=== PATIENT | male | born 1945 | race African-American/Black ===

== ENCOUNTER 2019-05-29 08:05 | Day surgery (SDC) | payer OTHER, BC ==
[2019-05-29] MEDS ORDERED: NA CHLORIDE 0.9% 1,000 ML ONE (09:59)
[2019-05-29] MEDS ORDERED: LIDOCAINE 1% MPF 5 ML VIAL ONE (11:26)
[2019-05-29] MEDS ORDERED: PROPOFOL 200 MG/20 ML VIAL IV ONE (11:26)
--- NOTE | 2019-05-29 11:46 | ENDO RPT ---
[address], [address] EGD PROCEDURE REPORT EXAM DATE: 05/29/2019 PATIENT NAME: Shankar López MR#: [id number] BIRTHDATE: 1945 ATTENDING: Jamaal Arana Dr STATUS: outpatient POULTRY CUTTER: Billy Phillips RN and Florence Neff RN INDICATIONS: The patient is a 74 yr old Male here for an EGD due to iron deficiency anemia PROCEDURE PERFORMED: EGD with biopsy MEDICATIONS: Per Anesthesia. TOPICAL ANESTHETIC: none CONSENT: The patient understands the risks and benefits of the procedure and understands that these risks include, but are not limited to: sedation, allergic reaction, infection, perforation and/or bleeding. Alternative means of evaluation and treatment include, among others: physical exam, x-rays, and/or surgical intervention. The patient elects to proceed with this endoscopic procedure. DESCRIPTION OF PROCEDURE: During intra-op preparation period all mechanical medical equipment was checked for proper function. Hand hygiene and appropriate measures for infection prevention was taken. Procedure, possible complications, and alternatives including but not limited to the possibility of bleeding, perforation, tear, infection, sepsis, need for surgery, need for blood transfusion, and anesthesia related complications were explained to the patient. After the risks, benefits and alternatives of the procedure were thoroughly explained, Informed consent was verified, confirmed and timeout was successfully executed by the treatment team. The patient was placed in the left lateral position. The patient was anesthetized with topical anesthesia. Through the anesthetized oropharyngeal area, the scope was passed without any difficulty. The EC-3890Li ([id number]) and EG-2990i ([id number]) endoscope was introduced through the mouth and advanced to the third portion of the duodenum. Retroflexed views revealed a small hiatal hernia. The gastroscope was then slowly withdrawn and removed. A small hiatal hernia was found Mild gastritis was found in the antrum. Multiple biopsies were obtained and sent to pathology. An erosion was found in the antrum. Small bowel biopsies obtained with history of iron deficiency anem ia. ADVERSE EVENTS: There were no complications. IMPRESSIONS: 1. Small hiatal hernia 2. Mild gastritis in the antrum, s/p biopsies 3. Erosion in the antrum 4. Small bowel biopsies obtained with history of iron deficiency anem ia RECOMMENDATIONS: 1. await biopsy results 2. acid suppression therapy REPEAT EXAM: Jamaal Arana Dr eSigned: Jamaal Arana Dr 05/29/2019 11:46 AM cc: Gus Gómez CPT CODES: ICD9 CODES: PATIENT NAME: Shankar López MR#: [id number]
--- NOTE | 2019-05-29 12:13 | ENDO RPT ---
[address], [address] COLONOSCOPY PROCEDURE REPORT EXAM DATE: 05/29/2019 PATIENT NAME: Shankar López MR #: [id number] BIRTHDATE: 1945 ATTENDING: Jamaal Arana Dr STATUS: outpatient MGMT ANALYST: Billy Phillips RN and Florence Neff RN INDICATIONS: The patient is a 74 yr old Male here for a colonoscopy due to personal history of colon polyps and anemia PROCEDURE PERFORMED: Colonoscopy MEDICATIONS: Per Anesthesia. ESTIMATED BLOOD LOSS: None CONSENT: The patient understands the risks and benefits of the procedure and understands that these risks include, but are not limited to: sedation, allergic reaction, infection, perforation and/or bleeding. Alternative means of evaluation and treatment include, among others: physical exam, x-rays, and/or surgical intervention. The patient elects to proceed with this endoscopic procedure. DESCRIPTION OF PROCEDURE: During intra-op preparation period all mechanical medical equipment was checked for proper function. Hand hygiene and appropriate measures for infection prevention was taken. Procedure, possible complications, alternatives including, but not limited to possibility of bleeding, perforation, tear, infection, sepsis, need for surgery, need for blood transfusion, were explained to the patient. After the risks, benefits and alternatives of the procedure were thoroughly explained, Informed consent was verified, confirmed and timeout was successfully executed by the treatment team. The patient was placed in the left lateral position. A digital rectal exam was performed and revealed no abnormalities of the rectum. After appropriate level of anesthesia, the scope was passed. The EG-2990i ([id number]) and EC-3890Li ([id number]) endoscope was introduced through the anus and advanced to the terminal ileum which was intubated for a short distance. The quality of the prep was good. The instrument was then slowly withdrawn as the colon was fully examined. Scope withdrawal time was 7 minutes. COLON FINDINGS: Mild diverticulosis was noted throughout the entire examined colon. Moderate sized internal hemorrhoids were found. Retroflexed views revealed medium hemorrhoids. The scope was then completely withdrawn from the patient and the procedure terminated. ADVERSE EVENTS: There were no complications. IMPRESSIONS: 1. Mild diverticulosis throughout the entire examined colon 2. Moderate sized internal hemorrhoids 3. Intubation to terminal ileum RECOMMENDATIONS: 1. fiber rich diet 2. Small Bowel Follow Through if iron deficiency anemia confirmed 3. pillcam / capsule endoscopy if iron deficiency anemia confirmed RECALL: None scheduled due to age 74 [address] eSigned: Jamaal Arana Dr 05/29/2019 12:12 PM cc: Gus Gómez CPT CODES: ICD9 CODES: PATIENT NAME: Shankar López MR#: [id number]
--- NOTE | 2019-05-29 12:18 | ENDO RPT ---
[address], [address] COLONOSCOPY PROCEDURE REPORT EXAM DATE: 05/29/2019 PATIENT NAME: Shankar López MR #: [id number] BIRTHDATE: 1945 ATTENDING: Jamaal Arana Dr STATUS: outpatient SUPERVISORY AIDE: Billy Phillips RN and Florence Neff RN INDICATIONS: The patient is a 74 yr old Male here for a colonoscopy due to personal history of colon polyps and anemia PROCEDURE PERFORMED: Colonoscopy MEDICATIONS: Per Anesthesia. ESTIMATED BLOOD LOSS: None CONSENT: The patient understands the risks and benefits of the procedure and understands that these risks include, but are not limited to: sedation, allergic reaction, infection, perforation and/or bleeding. Alternative means of evaluation and treatment include, among others: physical exam, x-rays, and/or surgical intervention. The patient elects to proceed with this endoscopic procedure. DESCRIPTION OF PROCEDURE: During intra-op preparation period all mechanical medical equipment was checked for proper function. Hand hygiene and appropriate measures for infection prevention was taken. Procedure, possible complications, alternatives including, but not limited to possibility of bleeding, perforation, tear, infection, sepsis, need for surgery, need for blood transfusion, were explained to the patient. After the risks, benefits and alternatives of the procedure were thoroughly explained, Informed consent was verified, confirmed and timeout was successfully executed by the treatment team. The patient was placed in the left lateral position. A digital rectal exam was performed and revealed no abnormalities of the rectum. After appropriate level of anesthesia, the scope was passed. The EG-2990i ([id number]) and EC-3890Li ([id number]) endoscope was introduced through the anus and advanced to the terminal ileum which was intubated for a short distance. The quality of the prep was good. The instrument was then slowly withdrawn as the colon was fully examined. Scope withdrawal time was 7 minutes. COLON FINDINGS: Mild diverticulosis was noted throughout the entire examined colon. Moderate sized internal hemorrhoids were found. Retroflexed views revealed medium hemorrhoids. The scope was then completely withdrawn from the patient and the procedure terminated. ADVERSE EVENTS: There were no complications. IMPRESSIONS: 1. Mild diverticulosis throughout the entire examined colon 2. Moderate sized internal hemorrhoids 3. Intubation to terminal ileum 4. Personal history of colon polyps RECOMMENDATIONS: 1. fiber rich diet 2. Small Bowel Follow Through if iron deficiency anemia confirmed 3. pillcam / capsule endoscopy if iron deficiency anemia confirmed RECALL: Colonoscopy in [address] eSigned: Jamaal Arana Dr 05/29/2019 12:17 PM Revised: 05/29/2019 12:17 PM cc: Gus Gómez CPT CODES: ICD9 CODES: PATIENT NAME: Shankar López MR#: [id number]
[2019-05-29 12:23] VITALS: TEMP 97.3; O2SAT 95
[2019-05-29 13:50] VITALS: BP 118/65
== END 2019-05-29 12:45 | disposition home or self-care (01) ==
LOC: OR 08:05
PROVIDERS: ATTEND Internal Medicine Gastroenterology
PROC: 0DB88ZX Excision of Small Intestine, Via Natural or Artificial Opening Endoscopic, Diagnostic (ICD-10-PCS; 2019-05-29)
PROC: 0DJD8ZZ Inspection of Lower Intestinal Tract, Via Natural or Artificial Opening Endoscopic (ICD-10-PCS; principal; 2019-05-29 11:45)
PROC: 0DB68ZX Excision of Stomach, Via Natural or Artificial Opening Endoscopic, Diagnostic (ICD-10-PCS; 2019-05-29 11:45)
DX: K29.50 Unspecified chronic gastritis without bleeding (principal); K25.9 Gastric ulcer, unspecified as acute or chronic, without hemorrhage or perforation; K57.90 Diverticulosis of intestine, part unspecified, without perforation or abscess without bleeding; D50.9 Iron deficiency anemia, unspecified; K44.9 Diaphragmatic hernia without obstruction or gangrene; K64.8 Other hemorrhoids; E11.9 Type 2 diabetes mellitus without complications; I11.0 Hypertensive heart disease with heart failure; I50.9 Heart failure, unspecified; E78.5 Hyperlipidemia, unspecified; Z86.010 Personal history of colon polyps; Z95.810 Presence of automatic (implantable) cardiac defibrillator
CPT/HCPCS: 88312; 82947; 88305; 45378; 43239; J2704; J7030

== ENCOUNTER 2020-09-19 08:43 | Day surgery (SDC) | payer BC, OTHER ==
[2020-09-16 09:16] LABS: Absolute Lymphocytes (CBC) 1.2 K/uL (0.7-4.9); Basophils % 0.7 % (0-1.3); Hematocrit 39.2 % (39.6-49.0); MPV 11.1 fL (7.6-11.3); RBC Red Blood Cell Count 4.72 M/uL (4.33-5.43)
[2020-09-16 09:24] LABS: Potassium 3.8 mmol/L (3.5-5.1)
--- NOTE | 2020-09-16 09:46 | RAD REPORT ---
EXAM DESCRIPTION: Kenrick Pandey (2 Views)09/16/2020 9:33 am CLINICAL HISTORY: Preop for hernia repair COMPARISON: 2017 FINDINGS: The lungs appear clear of acute infiltrate. The heart is mildly enlarged. Pacemaker leads are in place. IMPRESSION: No acute abnormalities displayed
--- NOTE | 2020-09-17 22:29 | EKG ---
Test Date: 2020-09-16 Test Time: 08:50:23 Hot Stick Worker: CHRIS MEASUREMENT RESULTS: Intervals: Rate: 70 DC: 100 QRSD: 156 QT: 454 QTc: 490 [place]: P: 85 DC: 100 QRS: 250 T: 95 INTERPRETIVE STATEMENTS: Electronic ventricular pacemaker Compared to ECG 12/07/2016 06:16:13 Sinus tachycardia no longer present Left bundle-branch block no longer present Electronically Signed On 09-17-20 22:25:49 PUBLIC TRANSPORTATION INSPECTOR by Cody Beal
[2020-09-19] MEDS ORDERED: NA CHLORIDE 0.9% 1,000 ML ONE (09:03)
[2020-09-19] MEDS ORDERED: CEFAZOLIN/SWI 1gm 1 GM/10 ML SYR ONE (09:04)
[2020-09-19] MEDS ORDERED: FENTANYL CITR 100 MCG/2 ML ONE (09:45)
[2020-09-19] MEDS ORDERED: propofoL 200 MG/20 ML VIAL IV ONE (09:45)
[2020-09-19] MEDS ORDERED: LIDOCAINE 1% MPF 5 ML VIAL ONE (09:45)
[2020-09-19] MEDS ORDERED: BUPIVACAINE 0.5% PF 10 ML VIAL ONE (10:13)
[2020-09-19] MEDS ORDERED: KETOROLAC 30 MG/ML INJ ONE (10:18)
[2020-09-19] MEDS ORDERED: ONDANSETRON 4 MG/2 ML VIAL ONE (10:18)
[2020-09-19 10:29] VITALS: O2SAT 100
--- NOTE | 2020-09-19 11:13 | OP ---
Date of Procedure: 09/19/2020 Surgeon: Adryan Person MD [place]: None. Preoperative Diagnosis: Perianal mass. Postoperative Diagnosis: Perianal mass. Procedures: Exam under anesthesia, rigid proctoscopy, and excision of perianal mass. Estimated Blood Loss: Minimal. Specimen: Perianal mass. Finding: As above with posterior midline perianal mass approximately 1 cm hard nodule and then there was a little tear in the mucosa and the distal anal canal distal to the dentate line. Not sure whet her it is a fissure or related to this perianal mass. Finding: As above. Anesthesia: General. Complications: None. Disposition: The patient tolerated the procedure in stable condition and taken to Recovery in good g eneral condition. Description Of Procedure: The patient was brought to the OR and placed in supine position. General anesthesia begun. The patient was prepped and draped in the usual sterile fashion in the lithotomy p osition. Exam under anesthesia revealed 1 cm mass in the posterior midline and rigid proctoscopy rev ealed a mucosal tear in the posterior midline next to this mass, approximately 1 x 1 cm. Minimal ooz ing was noted probably secondary to the proctoscopy. This was controlled with cautery and the mass w as excised with cautery, bleeding controlled with cautery and Marcaine 0.5% was infiltrated locally f or postop pain control. There was no other evidence of disease noted anywhere else in the anal canal . Subsequently, sterile dressing was applied. The patient was awakened and taken to Recovery in goo d general condition. Discharge Note: The patient will go to Day Surgery and home when stable. Disposition: Home. Condition: Stable. Discharge Instructions: Resume home medications and diet. Activity: As tolerated. Discharge Instructions: No heavy lifting. Remove outer dressing in a.m. Sitz baths q.i.d. High-fi anton diet. Metamucil 1 tablespoon p.o. t.i.d. with water. Colace 100 mg p.o. b.i.d., Procto-HC 2.5% to anus b.i.d. and p.r.n. Tylenol No. 3 1 tablet p.o. q.4 p.r.n. pain. Follow up in my office in 2 weeks, call for appointment. /MODL Voice ID: [id number] Report ID: [id number]
[2020-09-19 11:59] VITALS: BP 138/66; TEMP 96.8
== END 2020-09-19 11:40 | disposition home or self-care (01) ==
LOC: OR 08:43
PROVIDERS: ATTEND Surgery
PROC: 0D5P8ZZ Destruction of Rectum, Via Natural or Artificial Opening Endoscopic (ICD-10-PCS; principal; 2020-09-19 10:15)
DX: K62.0 Anal polyp (principal); Z20.822 Contact with and (suspected) exposure to COVID-19
CPT/HCPCS: 93005; 85025; 80048; 36415; 82947 ×2; 88304; 71046; 45320; U0003; J2704; J3010; J0690; J7030; J2405; 88305

== ENCOUNTER 2022-08-02 08:27 | Emergency (ER) | payer OTHER ==
--- OUTSIDE RECORDS SUMMARY | 2022-08-02 08:30 | XMS REPORT | Continuity of Care Document ---
:1945 Author Organization [facility] t Address [address] [place] [address] Care Team Providers Name Role Phone Dalia RAM, Gus Awan Primary Care Physician Evelyn RAM, Buddy Banerjee Attending Clinician Marco Antonio RAM PhD, Santosh Chandler Attending Clinician JAY BENDER Attending Clinician Unavailable Payers Payer Name Policy Type Policy Number Effective Date Expiration Date S ource Problems Condition Condition Condition Status Onset Resolution Last Treating Co mments Source Name Details Category Date Date Treatment Clinician Date S/p S/p Disease Active Overview: Method i biventricu biventricu 03-[address] lar ICD lar ICD 00:00: g of this Hospi ta implant implant 00 note l (SHAKEELM, (SJM, might be 03/11/2017 03/11/[address] by from the Neelam Bernard) original. 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 Added automatic ally from request for surgery [id number] t Assessmen t & Plan: Formattin g of this note might be different from the original. 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 Added automatic ally from request for surgery [id number] CKD CKD Disease Active [facility] (chronic (chronic 02-23 st kidney kidney 00:00: Hospita disease) disease) 00 l Cardiomyop Cardiomyop Disease Active M ethodi athy athy 12-21 st 00:00: Hospita 00 l SOB SOB Disease Active [facility] (shortness (shortness 12-21 st of breath) of breath) 00:00: Ho spita 00 l CAD CAD Disease Active [facility] (coronary (coronary 12-07 st artery artery 00:00: Hospita disease) disease) 00 l Allergies, Adverse Reactions, Alerts This patient has no known allergies or adverse reactions. Family History Family Member Diagnosis Comments Start Date Stop Date Source Natural brother Heart disease [facility] Natural brother Hypertension [facility] Natural father Heart attack [facility] Natural father Heart failure [facility] mother Heart attack [facility] mother Heart failure [facility] sister Christianity [facility] Social History Social Habit Start Date Stop Date Quantity Comments Source Alcohol intake 2019-02-27 2019-02-27 Current [facility] 00:00:00 00:00:00 non-drinker of Hospital alcohol (finding) Tobacco use and 2016-12-21 2016-12-21 Smokeless tobacco [facility] exposure 00:00:00 00:00:00 non-user Hospital Sex Assigned At [birth year] [facility] 00:00:[facility] 00:00:00 Hospital Smoking Status Start Date Stop Date Source Never smoked tobacco [facility] Medications Ordered Filled Start Stop Current Ordering Indication Dosage Frequency Signature Comments Components Source Medication Medication Date Date Medication? Clinician (SIG) Name Name losartan 2021-07 Yes TAKE 1 [facility] (COZAAR) 50 1-[address] MG tablet 00:00: MOUTH Hospita 00 EVERY DAY l losartan 2021- No TAKE 1 Method i (COZAAR) 50 8-22 11-[address] MG tablet 00:00: 00:00 MOUTH Hospit a 00 :00 EVERY DAY l metFORMIN 2021-0 Yes 500mg Q.5D Take 500 Met hodi (GLUCOPHAGE 8-[address] ) 500 mg 12:51: mouth 2 Hospit a tablet 49 (two) l times a day with meals. aspirin 2021-0 Yes 81mg QD Take 81 mg Meth julissa (ECOTRIN) 8-[address] 81 MG 12:51: daily. Hospita enteric 49 l coated tablet psyllium 0 Yes Q.5D Take by Method i husk 8-[address] (METAMUCIL 12:51: (two) Hospit a ORAL) 49 times a l day. losartan 2021- No TAKE 1 Method i (COZAAR) 50 5-26 08-[address] MG tablet 00:00: 00:00 MOUTH Hospit a 00 :00 EVERY DAY l furosemide 2021-0 Yes TAKE 1 Metho di (LASIX) 40 3-[address] mg tablet 00:00: MOUTH Hospita 00 TWICE A l DAY metoprolol 0 Yes TAKE 1 Metho di succinate 3-[address] XL 00:00: MOUTH Hospita (TOPROL-XL) 00 EVERY DAY l 25 mg 24 hr tablet losartan 2021-0 2021- No TAKE 1 Method i (COZAAR) 50 2-28 05-[address] MG tablet 00:00: 00:00 MOUTH Hospit a 00 :00 EVERY DAY l Jardiance 2021-0 Yes TAKE 1 Method i 10 mg 1-[address] tablet 00:00: MOUTH Hospita tablet 00 DAILY IN l MORNING WITH BREAKFAST losartan 2020-07- No TAKE 1 Method i (COZAAR) 50 2-07 02-[address] MG tablet 00:00: 00:00 MOUTH Hospit a 00 :00 EVERY DAY l furosemide 2020-0 2021- No 40mg Q.5D Take 1 Meth julissa (LASIX) 40 3-15 03-02 tablet (40 st mg tablet 00:00: 00:00 mg total) Ho spita 00 :00 by mouth 2 l (two) times a day. metoprolol 2020-0 2021- No 25mg QD Take 1 Meth julissa succinate 3-15 03-02 tablet (25 st XL 00:00: 00:00 mg total) Hospita (TOPROL-XL) 00 :00 by mouth l 25 mg 24 hr daily. tablet JANUVIA 100 Yes TAKE 1 Meth julissa mg tablet 7-[address] 00:00: MOUTH Hospita 00 EVERY DAY l WITH BREAKFAST rosuvastati 2016-07 Yes TAKE 1 Meth julissa n (CRESTOR) 2-[address] 10 MG 00:00: MOUTH Hospita tablet 00 EVERY DAY l AFTER EVENING MEAL Immunizations Ordered Immunization Filled Immunization Date Status Commen ts Source Name Name PFIZER COVID-19 MRNA 2020-09-14 Completed [facility] VACCINATION 00:00:00 [facility] PFIZER COVID-19 MRNA 2020-08-24 Completed [facility] VACCINATION 00:00:00 [facility] Pneumococcal 2020-04-30 Completed [facility] Conjugate 13-Valent 00:00:00 Hospi chato Vital Signs Vital Name Observation Time Observation Value Comments Source Systolic blood 2022-03-02 17:50:00 145 mm[Hg] [facility] pressure Diastolic blood 2022-03-02 17:50:00 67 mm[Hg] [facility] pressure Heart rate 2022-03-02 17:50:00 77 /min [facility] Body height 2022-03-02 17:50:00 182.9 cm [facility] Body weight 2022-03-02 17:50:00 87.544 kg [facility] BMI 2022-03-02 17:50:00 26.18 kg/m2 [facility] Procedures Procedure Date / Time Performing Clinician Source Performed ECG 12-LEAD 2021-10-20 19:51:15 Santosh Bernard Ho spital CV PACEMAKER DEFIB ILR 2021-10-20 00:00:00 Santosh Bernard [facility] INTERROGATION Plan of Care Planned Activity Planned Date Details Comments Source Future Scheduled 2022-07-[address] [facility] Test 10:22:12 (procedure) [code = 619463416] Future Scheduled 2022-07-[address] [facility] Test 10:22:12 [code = COLONOSCOPY SCREENING] Future Scheduled 2022-07-14 SHINGLES VACCINES (1 Met [facility] Test 10:22:12 of 2) [code = SHINGLES VACCINES (1 of 2)] Future Scheduled 2022-07-14 COVID-19 VACCINE (3 - [facility] Test 10:22:12 Booster for Pfizer series) [code = COVID-19 VACCINE (3 - Booster for Pfizer series)] Future Scheduled 2022-07-14 65+ PNEUMOCOCCAL [facility] Test 10:22:12 VACCINE (2 - PPSV23 if available, else PCV20) [code = 65+ PNEUMOCOCCAL VACCINE (2 - PPSV23 if available, else PCV20)] Future Scheduled 2022-07-14 INFLUENZA VACCINE [facility] Test 10:22:12 [code = INFLUENZA VACCINE] Encounters Start End Encounter Admission Attending Care Care Encounter Source Date/Time Date/Time Type Type Clinicians Facility Department ID 2022-06-04 2022-06-04 Reflela Rivas, 1.2.840.1 [id number] [facility] 00:00:00 00:00:00 Buddy Banerjee [address]95.1.[address] 3.430.2.7 Hospit a .3.180152 l .8 2022-03-07 2022-03-07 Refill Evelyn, 1.2.840.1 [id number] [facility] 00:00:00 00:00:00 Buddy Banerjee [address].1.[address] 3.430.2.7 Hospit a .3.549523 l .8 2022-03-02 2022-03-02 Office Evelyn 1.2.840.1 [id number] [facility] 13:00:00 14:49:21 Visit Buddy Banerjee 74225.1.[address] 3.430.2.7 Hospit a .3.539342 l .8 2022-03-02 2022-03-02 Outpatient EVELYN, [facility] [id number] Zap 00:00:00 00:00:[address] 2022-03-02 2022-03-02 Travel 1.2.840.1 1.2.917.399 [id number] [facility] 00:00:00 00:00:[address] 3.430.2.7 0.2.7.3.698 Ho spita .3.855636 084.8 l .8 2021-12-10 2021-12-10 Refill Evelyn, 1.2.840.1 [id number] [facility] 00:00:00 00:00:[address] 3.430.2.7 Hospit a .3.265370 l .8 2021-10-21 2021-10-21 Orders Marco Antonio Santosh 1.2.840.1 [id number] [facility] 00:00:00 00:00:[address] 3.430.2.7 Hospit a .3.181644 l .8 2021-10-20 2021-10-20 Office Marco Antonio Santosh 1.2.840.1 [id number] [facility] 15:00:00 16:19:[address]058.1.[address] 3.430.2.7 Hospit a .3.389362 l .8 2021-10-20 2021-10-20 Outpatient ROCHELLE BERNARDSH [facility] [id number] Zap 00:00:00 00:00:[address] 2021-10-20 2021-10-20 Travel 1.2.840.1 1.2.915.692 [id number] [facility] 00:00:00 00:00:[address] 3.430.2.7 0.2.7.3.698 Ho spita .3.298461 084.8 l .8 2021-09-16 2021-09-16 Refill Evelyn, 1.2.840.1 [id number] [facility] 00:00:00 00:00:[address] 3.430.2.7 Hospit a .3.850513 l .8 2021-09-14 2021-09-14 Travel 1.2.840.1 1.2.448.816 [id number] [facility] 00:00:00 00:00:[address] 3.430.2.7 0.2.7.3.698 Ho spita .3.150404 084.8 l .8 2021-09-14 2021-09-14 Refill Evelyn, 1.2.840.1 [id number] [facility] 00:00:00 00:00:00 Buddy Banerjee [address].1.[address] 3.430.2.7 Hospit a .3.972864 l .8 2021-03-13 2021-03-13 [facility]patient [facility] [id number] Zap 00:00:00 00:00:[address] BUD[address] 2021-03-03 2021-03-03 Outpatient [facility] [id number] Zap 00:00:00 00:00:[address] BUD[address] 2020-09-14 2020-09-14 Outpatient NAPOLEON [facility] [id number] Zap 00:00:00 00:00:[address] J[address] 2020-08-24 2020-08-24 Outpatient [facility] [id number] Zap 00:00:00 00:00:[address] 2020-03-04 2020-03-04 [facility] [id number] Zap 00:00:00 00:00:00 BUDDY [address] Results Test Description Test Time Test Comments Results Result Comments Source ECG 12 lead 2021-10-21 13:15:44 Test Item Value Reference Range Interpretation Comme nts Ventricular rate (test code = 253) Atrial rate (test code = 255) MD interval (test code = 266) QRSD interval (test code = 260) QT interval (test code = 264) QTC interval (test code = 265) P axis 1 (test code = 267) QRS axis 1 (test code = 268) T wave axis (test code = 270) EKG impression (test code = 273) Atrial-sensed ventricular-paced rhythm-Abnormal ECG-In automated comparison with ECG of 04-MAR-2020 12:53,-premature ventricular complexes are no longer present-Vent. rate has increased BY 4 BPM- [facility]
[2022-08-02 09:08] LABS: Absolute Lymphocytes (CBC) 1.5 K/uL (0.7-4.9); Hematocrit 41.9 % (39.6-49.0); Lymphocytes % 22.4 % (15.3-44.8); MCV 82.7 fL (80-100); RBC Red Blood Cell Count 5.07 M/uL (4.33-5.43)
[2022-08-02 09:27] LABS: Albumin 3.9 g/dL (3.4-5.0); Bilirubin Total 0.4 mg/dL (0.2-1.0); Potassium 3.8 mmol/L (3.5-5.1); Protein, Total 8.3 g/dL (6.4-8.2); Troponin High Sensitivity 9.2 pg/mL (<58.9)
--- NOTE | 2022-08-02 09:36 | RAD REPORT ---
EXAM DESCRIPTION: RAD - Chest Single View - 08/02/2022 9:08 am CLINICAL HISTORY: COUGH COMPARISON: Chest Pa And Lat (2 Views) dated 09/16/2020; Chest Single View dated 12/07/2016; Chest Pa A nd Lat (2 Views) dated 12/06/2016 FINDINGS: Lines: Pacemaker. Lungs: No evidence of edema or pneumonia. Pleural: No significant pleural effusions or pneumothorax. Cardiac: The heart size is within normal limits. Mediastinum: Within normal limits. Bones: No acute fractures. Other: None IMPRESSION: No acute cardiopulmonary disease.
--- NOTE | 2022-08-02 09:43 | EDPHYS ---
Physician Documentation [facility] Name: Shankar López II Age: 77 yrs Sex: Male : 1945 Arrival Date: 08/02/2022 Time: 08:28 Bed 16 Private MD: Brayden Gómez C ED Physician Aubrey Baires HPI: 08/02 08:40 This 77 yrs old Black Male presents to ER via Unassigned with complaints of Cough. rt 08:40 The patient or guardian reports cough, that is intermittent. Onset: The rt symptoms/episode began/occurred 1 week(s) ago. Severity of symptoms: At their worst the symptoms were mild. Modifying factors: the symptoms are aggravated by nighttime. Associated signs and symptoms: The patient has no apparent associated signs or symptoms. Patient presents to the ED with a cough for about 1 week. He states that he had a sore throat at the onset, none currently. States that the cough is worse at nighttime. Denies any dyspnea, chest pain, fevers, chills. States that the cough is nonproductive. Denies other acute complaints at this time. Symptoms are mild in severity, no other aggravating or alleviating factors.. Historical: - PMHx: 08:44 Diabetes - NIDDM; Hypertension; Congestive heart failure; jh5 - PSHx: 08:44 defibrillator placement; 5 - Immunization history:: Adult Immunizations up to date. - Social history:: Smoking status: Patient denies any tobacco usage or history of. - Family history:: not pertinent. ROS: 08:40 Constitutional: Negative for fever, chills, and weight loss, Eyes: Negative for injury, rt pain, redness, and discharge, ENT: Negative for injury, pain, and discharge, Neck: Negative for injury, pain, and swelling, Cardiovascular: Negative for chest pain, palpitations, and edema, Abdomen/GI: Negative for abdominal pain, nausea, vomiting, diarrhea, and constipation, MS/Extremity: Negative for injury and deformity, Skin: Negative for injury, rash, and discoloration, Neuro: Negative for headache, weakness, numbness, tingling, and seizure, Psych: Negative for depression, anxiety, suicide ideation, homicidal ideation, and hallucinations. 08:40 Respiratory: Positive for cough, Negative for shortness of breath. Exam: 08:40 Constitutional: This is a well developed, well nourished patient who is awake, alert, rt and in no acute distress. Head/Face: Normocephalic, atraumatic. Eyes: Pupils equal round and reactive to light, extra-ocular motions intact. Lids and lashes normal. Conjunctiva and sclera are non-icteric and not injected. Cornea within normal limits. Periorbital areas with no swelling, redness, or edema. ENT: Nares patent. No nasal discharge, no septal abnormalities noted. Tympanic membranes are normal and external auditory canals are clear. Oropharynx with no redness, swelling, or masses, exudates, or evidence of obstruction, uvula midline. Mucous membranes moist. Neck: Trachea midline, no thyromegaly or masses palpated, and no cervical lymphadenopathy. Supple, full range of motion without nuchal rigidity, or vertebral point tenderness. No Meningismus. Chest/axilla: Normal chest wall appearance and motion. Nontender with no deformity. No lesions are appreciated. Cardiovascular: Regular rate and rhythm with a normal S1 and S2. No gallops, murmurs, or rubs. Normal PMI, no JVD. No pulse deficits. Respiratory: Lungs have equal breath sounds bilaterally, clear to auscultation and percussion. No rales, rhonchi or wheezes noted. No increased work of breathing, no retractions or nasal flaring. Abdomen/GI: Soft, non-tender, with normal bowel sounds. No distension or tympany. No guarding or rebound. No evidence of tenderness throughout. Skin: Warm, dry with normal turgor. Normal color with no rashes, no lesions, and no evidence of cellulitis. MS/ Extremity: Pulses equal, no cyanosis. Neurovascular intact. Full, normal range of motion. Neuro: Awake and alert, GCS 15, oriented to person, place, time, and situation. Cranial nerves II-XII grossly intact. Motor strength 5/5 in all extremities. Sensory grossly intact. Cerebellar exam normal. Normal gait. Psych: Awake, alert, with orientation to person, place and time. Behavior, mood, and affect are within normal limits. 09:15 ECG was reviewed by the Attending Physician. rt Vital Signs: 08:41 BP 142 / 73; Pulse 78; Resp 18; Temp 98.6; Pulse Ox 98% ; Weight 83.91 kg; Height 6 ft. jh5 0 in. (182.88 cm); Pain 0/10; 10:12 BP 151 / 70; Pulse 68; Resp 16; Pulse Ox 98% ; bp 08:41 Body Mass Index 25.09 (83.91 kg, 182.88 cm) jh5 MDM: 08:34 Patient medically screened. rt 09:45 Differential Diagnosis: Bronchitis Upper Respiratory Infection Pneumonia Other CHF, PE. rt Data reviewed: vital signs, nurses notes, old medical records, prior chf admission lab test result(s), EKG, radiologic studies. Independent interpretation of the following test(s) in the Emergency Department EKG: See my EKG interpretation above X-Ray: My interpretation is No consolidation. vehicle monitor technician: Rhythm is paced rhythm with no ectopy. Care significantly affected by the following chronic conditions: Congestive Heart Failure. Scoring Tools PERC Rule for PE Age >/= 50 Yes HR >/= 100 No O2 Sat Room Air < 95% No Unilateral leg swelling No Hemoptysis No Recent surgery or trauma </= 4 wks ago requiring treatment with general anesthesia No (0 pt) Prior PE or DVT No Hormone use (Oral contraceptives, hormone replacement or estrogenic hormones use in males or female patients No. Counseling: I had a detailed discussion with the patient and/or guardian regarding: the historical points, exam findings, and any diagnostic results supporting the discharge/admit diagnosis, lab results, radiology results, the need for outpatient follow up. 08/02 08:39 Order name: CBC with Diff; Complete Time: 09:35 rt 08/02 08:39 Order name: CMP; Complete Time: 09:35 rt 08/02 08:39 Order name: Chest Single View XRAY; Complete Time: 09:39 rt 08/02 08:39 Order name: EKG; Complete Time: 08:40 rt 08/02 08:39 Order name: Troponin HS; Complete Time: 09:35 rt 08/02 08:39 Order name: BNP; Complete Time: 09:35 rt 08/02 08:39 Order name: EKG - Nurse/Tech; Complete Time: 09:46 rt EC:15 Rate is 69 beats/min. Rhythm is regular, Paced with No ectopy. [place] interval is normal. rt QRS interval is normal. No Q waves. T waves are Normal. Administered Medications: No medications were administered Disposition Summary: 08/02/22 09:43 Discharge Ordered Location: Home rt Problem: new rt Symptoms: have improved rt Condition: Stable rt Diagnosis - Cough rt Followup: rt - With: Brayden Gómez MD - When: 2 - 3 days - Reason: Discharge Instructions: - Discharge Summary Sheet rt - Cough, Adult rt Forms: - Medication Reconciliation Form rt - Thank You Letter rt - Antibiotic Education rt - Prescription Opioid Use rt Prescriptions: - albuterol sulfate 90 mcg/actuation Inhalation HFA aerosol inhaler - inhale 3 puff by INHALATION route every 4 hours; 1 Inhaler; Refills: 0, Product rt Selection Permitted - Tessalon Perles 100 mg Oral Capsule - take 1 capsule by ORAL route every 8 hours As needed; 15 capsule; Refills: 0, rt Product Selection Permitted Signatures: Dispatcher [employer] Ankita Mcmahon, RN RN jh5 Aubrey Baires MD MD rt
--- NOTE | 2022-08-02 09:43 | ER ---
Nurse's Notes [facility] Name: Shankar López II Age: 77 yrs Sex: Male : 1945 Arrival Date: 08/02/2022 Time: 08:28 Bed 16 Private MD: Brayden Gómez C Diagnosis: Cough Presentation: 08/02 08:41 Chief complaint: Patient states: I've had this cough for about a week and a half, I had jh5 a cold but this cough just wont go away and it's worse at night. My Dr. Office is closed today but my wants me to get checked out because I have had the congestive heart failure about 6 years ago. I haven't had any fevers that I know of, I did have a sore throat but it's gone now. Coronavirus screen: Vaccine status: Patient reports receiving the 2nd dose of the covid vaccine. Client denies travel out of the [place] in the last 14 days. Ebola Screen: Patient negative for fever greater than or equal to 101.5 degrees Fahrenheit, and additional compatible Ebola Virus Disease symptoms Patient denies exposure to infectious person. Patient denies travel to an Ebola-affected area in the 21 days before illness onset. Initial Sepsis Screen: Does the patient meet any 2 criteria? No. Patient's initial sepsis screen is negative. Does the patient have a suspected source of infection? No. Patient's initial sepsis screen is negative. Risk Assessment: Do you want to hurt yourself or someone else? Patient reports no desire to harm self or others. Onset of symptoms was July 20, 2022. 08:41 Method Of Arrival: Ambulatory [facility] 08:41 Acuity: WILLIE 3 jh5 Triage Assessment: 08:44 General: Appears in no apparent distress. slender, well groomed, well developed, well jh5 nourished, Behavior is calm, cooperative, appropriate for age. Pain: Denies pain. Historical: - PMHx: 08:44 Diabetes - NIDDM; Hypertension; Congestive heart failure; jh5 - PSHx: 08:44 defibrillator placement; jh5 - Immunization history:: Adult Immunizations up to date. - Social history:: Smoking status: Patient denies any tobacco usage or history of. - Family history:: not pertinent. Screenin:[facility] ED Fall Risk Assessment (Adult) History of falling in the last 3 months, bp including since admission No falls in past 3 months (0 pts). Abuse screen: Denies threats or abuse. Denies injuries from another. Nutritional screening: No deficits noted. Tuberculosis screening: No symptoms or risk factors identified. Assessment: 08:45 General: SEE TRIAGE NOTE. bp 10:12 Reassessment: PT DC HOME. bp Vital Signs: 08:41 BP 142 / 73; Pulse 78; Resp 18; Temp 98.6; Pulse Ox 98% ; Weight 83.91 kg; Height 6 ft. [facility] 0 in. (182.88 cm); Pain 0/10; 10:12 BP 151 / 70; Pulse 68; Resp 16; Pulse Ox 98% ; bp 08:41 Body Mass Index 25.09 (83.91 kg, 182.88 cm) [facility] ED Course: 08:28 Patient arrived in ED. am2 08:28 Brayden Gómez MD is Private Physician. am2 08:33 Aubrey Baires MD is Attending Physician. rt 08:38 Dagoberto Storey, WILBER is Primary Nurse. bp 08:44 Triage completed. [facility] 08:44 Arm band placed on right wrist. [facility] 09:10 Chest Single View XRAY In Process Unspecified. EDMS 09:42 Brayden Gómez MD is Referral Physician. rt 10:12 Patient has correct armband on for positive identification. Bed in low position. Call bp light in reach. Side rails up X2. 10:12 IV discontinued, intact, bleeding controlled, No redness/swelling at site. Pressure bp dressing applied. 10:12 No provider procedures requiring assistance completed. bp Administered Medications: No medications were administered Medication: 10:12 VIS not applicable for this client. bp Outcome: 09:43 Discharge ordered by MD. rt 10:12 Discharged to home ambulatory. bp 10:12 Condition: stable 10:12 Discharge instructions given to patient, Instructed on discharge instructions, follow up and referral plans. medication usage, Demonstrated understanding of instructions, follow-up care, medications, Prescriptions given X 2. 10:14 Patient left the ED. bp Signatures: Dispatcher [employer] EDMS RomanoCorina am2 Dagoberto Storey RN RN bp Ankita Curran RN RN [facility] Aubrey Baires MD MD rt
[2022-08-02 10:30] VITALS: TEMP 98.6; O2SAT 98
[2022-08-02 10:31] VITALS: BP 151/70
--- NOTE | 2022-08-03 07:38 | EKG ---
Test Date: 2022-08-02 Test Time: 09:04:01 Flanging Roll Operator: BP MEASUREMENT RESULTS: Intervals: Rate: 69 MN: 94 QRSD: 148 QT: 470 QTc: 503 [place]: P: 62 MN: 94 QRS: 244 T: 106 INTERPRETIVE STATEMENTS: Suspect unspecified pacemaker failure Atrial-sensed ventricular-paced rhythm Abnormal ECG Compared to ECG 09/16/2020 08:50:23 No significant changes Electronically Signed On 08-03-22 07:36:09 [employer]IP[employer] by Cody Beal
== END 2022-08-02 10:14 | disposition home or self-care (01) ==
LOC: ER 08:27
DX: R05.9 Cough, unspecified (principal); I50.9 Heart failure, unspecified; I10 Essential (primary) hypertension; E11.9 Type 2 diabetes mellitus without complications; Z95.810 Presence of automatic (implantable) cardiac defibrillator
CPT/HCPCS: 36415; 71045; 80053; 83880; 84484; 85025; 93005; 99283